=== PATIENT | male | born 1965 | race Caucasian/White ===

== ENCOUNTER 2022-05-19 11:03 | Outpatient (CLI) | payer OTHER, SELFPAY ==
[2022-05-19 16:11] LABS: Albumin* 4.5 g/dL (3.3-5.0)
[2022-05-19 16:12] LABS: Potassium* 4.6 mmol/L (3.6-5.1)
[2022-05-19 16:14] LABS: Alkaline Phosphatase* 88 U/L (40-150); Bilirubin Total* 0.7 mg/dL (0.1-1.5); Blood Urea Nitrogen* 17 mg/dL (7-30); Carbon Dioxide* 29 mmol/L (20-32); Cholesterol* 166 mg/dL (90-199); Estimated Glomerular Filt Rate 88 ml/min; Total Protein* 7.6 g/dL (6.0-8.3)
[2022-05-19 16:15] LABS: Alanine Aminotransferase* 62 U/L (4-50); Glucose* 110 mg/dL (60-115); HDL Cholesterol* 30 mg/dL (>=40); LDL Cholesterol Calculated 92 mg/dL (<100); Triglycerides* 222 mg/dL (40-149)
[2022-05-19 16:44] LABS: PSA Screen* 3.87 ng/mL (0.10-4.00)
[2022-05-19 16:50] LABS: Chloride* 105 mmol/L (96-114)
[2022-05-19 16:51] LABS: Sodium* 140 mmol/L (135-149)
[2022-05-19 16:52] LABS: Aspartate Amino Transferase* 38 U/L (12-35)
[2022-05-20 19:47] LABS: Sex Hormone Binding Globulin 30 nmol/L (19-76); Testosterone, Adult Male 196 ng/dL (300-890); Testosterone, Free Calculation 36 pg/mL (47-244); Testosterone, Percentage Free 1.8 % (1.6-2.9)
== END 2022-05-19 11:04 | disposition home or self-care (01) ==
PROVIDERS: PCP Family Medicine; Visit Provider Physician Assistant Medical
DX: Z00.00 Encounter for general adult medical examination without abnormal findings (principal); R79.89 Other specified abnormal findings of blood chemistry; E78.1 Pure hyperglyceridemia
CPT/HCPCS: 80053; 80061; 84153; 84270; 84402; 84403

== ENCOUNTER 2022-12-17 09:10 | Outpatient (CLI) | payer OTHER, SELFPAY | END 2022-12-17 09:11 | disposition home or self-care (01) | LOC: NFLDREF 12-19 03:17 | PROVIDERS: PCP Physician Assistant Medical; Referring Provider Physician Assistant Medical; Visit Provider Physician Assistant Medical | DX: R79.89 Other specified abnormal findings of blood chemistry (principal) | CPT/HCPCS: 84403 ==

== ENCOUNTER 2023-04-29 09:25 | Outpatient (CLI) | payer OTHER, SELFPAY | END 2023-04-29 09:26 | disposition home or self-care (01) | LOC: NFLDREF 05-01 12:26 | PROVIDERS: PCP Physician Assistant Medical; Referring Provider Physician Assistant Medical; Visit Provider Physician Assistant Medical | DX: R79.89 Other specified abnormal findings of blood chemistry (principal); E78.1 Pure hyperglyceridemia | CPT/HCPCS: 80053; 80061; 84403 ==

== ENCOUNTER 2024-02-17 07:34 | Outpatient (CLI) | payer OTHER, SELFPAY | END 2024-02-17 07:35 | disposition home or self-care (01) | LOC: FRMREF 07:34 | PROVIDERS: PCP Physician Assistant Medical; Visit Provider Physician Assistant Medical | DX: R79.89 Other specified abnormal findings of blood chemistry (principal) | CPT/HCPCS: 84403 ==

== ENCOUNTER 2024-09-21 09:40 | Outpatient (CLI) | payer OTHER, SELFPAY | END 2024-09-21 09:41 | disposition home or self-care (01) | LOC: NFLDREF 09-25 03:04 | PROVIDERS: PCP Physician Assistant Medical; Referring Provider Physician Assistant Medical; Visit Provider Physician Assistant Medical | DX: E78.1 Pure hyperglyceridemia (principal); R79.89 Other specified abnormal findings of blood chemistry; Z13.29 Encounter for screening for other suspected endocrine disorder; Z12.5 Encounter for screening for malignant neoplasm of prostate | CPT/HCPCS: 80053; 80061; 84403; 84443; G0103 ==

== ENCOUNTER 2024-11-06 08:32 | Outpatient (CLI) | payer OTHER, SELFPAY ==
--- NOTE | 2024-11-06 10:26 | W.ANESCHARGE ---
Anesthesia Charges Start Date/Time Anesthesia Start Date: 11/06/24 Anesthesia Start Time: 09:52 Stop Date/Time Anesthesia Stop Date: 11/06/24 Anesthesia Stop Time: 10:23 Coding CPT Codes CPT Codes: ANES LWR INTST NDSC NOS - [id number] ([id number]) P3 - PATIENT W/SEVERE SYS DISEASE, QK - TRANSPORT OPERATIONS INSPECTOR 2-4 CNCRNT ANES PROC, QX - CISCO CERTIFIED NETWORK ASSOCIATE SVC W/ MD MED DIRECTION
--- NOTE | 2024-11-06 10:45 | W.ANESCHARGE ---
Anesthesia Charges Start Date/Time Anesthesia Start Date: 11/06/24 Anesthesia Start Time: 09:52 Stop Date/Time Anesthesia Stop Date: 11/06/24 Anesthesia Stop Time: 10:23 Coding CPT Codes CPT Codes: ANES LWR INTST NDSC NOS - [id number] ([id number]) QK - MOLD CARRIER 2-4 CNCRNT ANES PROC, QX - CUSTOMER CARE PROFESSIONAL SVC W/ MED DIRECTION, P3 - PATIENT W/SEVERE SYS DISEASE
== END 2024-11-06 08:33 | disposition home or self-care (01) ==
PROVIDERS: PCP Physician Assistant Medical; Visit Provider Surgery
DX: Z12.11 Encounter for screening for malignant neoplasm of colon (principal); D12.8 Benign neoplasm of rectum
CPT/HCPCS: 00811; 45385; 88305; J2704

== ENCOUNTER 2025-01-17 10:00 | Outpatient (CLI) | payer OTHER, SELFPAY | END 2025-01-17 10:01 | disposition home or self-care (01) | LOC: NFLDREF 01-24 02:16 | PROVIDERS: PCP Physician Assistant Medical; Referring Provider Physician Assistant Medical; Visit Provider Physician Assistant Medical | DX: E29.1 Testicular hypofunction (principal) | CPT/HCPCS: 84403 ==

== ENCOUNTER 2025-06-22 08:18 | Outpatient (CLI) | payer OTHER, SELFPAY ==
[2025-06-22 12:53] LABS: Hematocrit* 53.7 % (37.0-53.0); Hemoglobin* 18.0 gm/dL (13.5-17.5); Immature Granulocytes Abs Auto 0.02 K/uL (0.00-0.30); Immature Granulocytes Pct Auto 0.4 %; Lymphocytes Absolute Auto 1.13 K/uL (0.90-2.90); Mean Corpuscular HGB Conc 34 gm/dL (32-36); Mean Corpuscular Hemoglobin 31 pg (26-34); Mean Corpuscular Volume 91 fL (80-100); RDW Coefficient of Variation % 12.9 % (11.5-15.5); Red Blood Count* 5.88 m/uL (4.30-5.90); White Blood Count* 5.65 K/uL (4.50-11.00)
[2025-06-22 13:08] LABS: Slide Review Reflex No
[2025-06-22 13:53] LABS: PSA Screen* 2.62 ng/mL (0.10-4.00)
== END 2025-06-22 08:19 | disposition home or self-care (01) ==
LOC: NPINS 08:21
PROVIDERS: PCP Physician Assistant Medical; Visit Provider Psychiatry & Neurology Neurology
DX: R86.1 Abnormal level of hormones in specimens from male genital organs (principal); R97.20 Elevated prostate specific antigen [PSA]; R73.09 Other abnormal glucose
CPT/HCPCS: 83036; 84146; 84270; 84403; 85025; G0103

== ENCOUNTER 2025-06-22 08:30 | Outpatient (CLI) | payer OTHER, SELFPAY | END 2025-06-22 08:31 | disposition home or self-care (01) | LOC: NFLDREF 06-28 12:41 | PROVIDERS: PCP Physician Assistant Medical; Referring Provider Physician Assistant Medical; Visit Provider Physician Assistant Medical | DX: R97.20 Elevated prostate specific antigen [PSA] (principal); R73.09 Other abnormal glucose; R86.1 Abnormal level of hormones in specimens from male genital organs | CPT/HCPCS: 80053; 80061; 84403; 84443 ==